=== PATIENT | male | born 1980 | race American Indian/Alaskan Native ===

== ENCOUNTER 2017-12-25 09:58 | Emergency (ER) | payer BC, OTHER ==
[2017-12-25 10:08] VITALS: BMI 34.0
[2017-12-25 10:10] VITALS: BP 135/83; PULSE 88; RESP 18; TEMP 98.9; O2SAT 100
[2017-12-25] MEDS ORDERED: Naproxen 550 mg Tab PO STA (10:16)
[2017-12-25] MEDS ORDERED: Naproxen 550 mg Tab PO ONE (10:19)
--- NOTE | 2017-12-25 10:50 | C.PDOC ---
History Of Present Illness Pt c/o right hip area pain. Denies injury. Time Seen by Provider: 12/25/17 10:11 Chief Complaint (Nursing): Hip Pain History Per: Patient Onset/Duration Of Symptoms: Days (about 1 month) Current Symptoms Are (Timing): Still Present Severity: Moderate Additional History Per: Prior Records Past Medical History Reviewed: Historical Data, Nursing Documentation, Vital Signs Vital Signs: Last Vital Signs Temp 98.9 F 12/25/17 10:08 Pulse 88 12/25/17 10:08 Resp 18 12/25/17 10:08 BP 135/83 12/25/17 10:08 Pulse Ox 100 12/25/17 10:50 - Medical History PMH: No Chronic Diseases Surgical History: No Surg Hx Family History: States: Unknown Family Hx - Social History Hx Tobacco Use: No Hx Alcohol Use: No Hx Substance Use: No - Immunization History Hx Tetanus Toxoid Vaccination: No Hx Influenza Vaccination: No Hx Pneumococcal Vaccination: No Review Of Systems Except As Marked, All Systems Reviewed And Found Negative. Constitutional: Negative for: Fever, Weakness Cardiovascular: Negative for: Chest Pain Respiratory: Negative for: Shortness of Breath Gastrointestinal: Negative for: Abdominal Pain Genitourinary: Negative for: Dysuria, Incontinence Musculoskeletal: Positive for: Back Pain (right lower). Negative for: Neck Pain Skin: Negative for: Rash Neurological: Negative for: Weakness, Numbness Physical Exam - Physical Exam Appears: Non-toxic, No Acute Distress Skin: Normal Color, Warm, Dry, No Rash Head: Atraumatic, Normacephalic Eye(s): bilateral: Normal Inspection, PERRL, EOMI Neck: Normal ROM, Supple Gastrointestinal/Abdominal: Soft, No Tenderness Back: No CVA Tenderness, No Vertebral Tenderness Extremity: Normal ROM, No Pedal Edema, No Calf Tenderness, No Deformity, No Swelling Neurological/Psych: Oriented x3, Normal Motor, Normal Sensation ED Course And Treatment O2 Sat by Pulse Oximetry: 100 Pulse Ox Interpretation: Normal - Other Rad Right hip x-rays X-Ray: Interpreted by Me, Viewed By Me Interpretation: No fx or dislocation. Reassessment Condition: Improved Disposition Counseled Patient/Family Regarding: Studies Performed, Diagnosis, Need For Followup, Rx Given - Disposition Referrals: Israel Castillo MD [Staff Provider] - Disposition: HOME/ ROUTINE Disposition Time: 11:05 Condition: STABLE Additional Instructions: Rest. Follow up with your doctor for further evaluation and treatment. Return to the ER if you develop worsening of symptoms or if you have any other concerns. Prescriptions: Naproxen [Naprosyn] 1 tab PO BID PRN #20 tab PRN Reason: Pain Instructions: Hip Pain (DC) Forms: [email or web address] ([place]) - Clinical Impression Clinical Impression: Pain in right hip
--- NOTE | 2017-12-25 12:02 | RAD ---
PROCEDURE: HISTORY: Right hip area pain x 1 month COMPARISON: Abdominal x-ray 07/10/2015 TECHNIQUE: AP view of the pelvis and applicable frog leg views obtained. FINDINGS: Bilateral superolateral hip joint space narrowing. See prior abdominal x-ray studies including the hips from 2015, there is office calcific and/or hypodense os ossific material projecting just lateral to the right acetabular roof this appears to change in position on the frog-leg views moving upward. Consider CT here to further localize its anterior posterior position conceivably it also could even be extrinsic to the patient. Its origin and clinical significance, if any is unclear at this time. Is however the difference in appearance noted. No cortical fracture seen. Right L5-S1 facet hypertrophic arthrosis slightly more progressed in appearance than before. The visualized is right colonic stool retention. Eft inferior bilateral pelvic phleboliths IMPRESSION: No fracture or dislocation or gross lytic lesion. Degenerative changes as referenced above are noted. . Indeterminate amorphous faint density lateral to the right hip joint -in this patient who is symptomatic over the right hip. Consider CT of the right hip or MRI the right hip to further evaluate
== END 2017-12-25 11:10 | disposition home or self-care (01) ==
LOC: C.ER 09:58
DX: M25.551 Pain in right hip (principal)